=== PATIENT | male | born 1940 | race Caucasian/White ===

== ENCOUNTER 2020-05-24 05:52 | Day surgery (SDC) | payer MEDICARE, BC ==
[~2020-05-24 05:52] MED LIST: Dextrose 5%-0.45% NaCl 1,000 ML IV SCH; Sodium Chloride 0.9% 10 ML Syringe FLUSH PRN
[2020-05-24] MEDS ORDERED: fentaNYL 100 MCG/2 ML SDV IV ONE ×3 (05:53→07:01)
[2020-05-24] MEDS ORDERED: Midazolam 1 MG/ML 2 ML SDV IV ONE ×5 (05:53→07:09)
[2020-05-24] MEDS ORDERED: Midazolam 1 MG/ML 2 ML SDV ONE (06:16)
[2020-05-24] MEDS ORDERED: fentaNYL 100 MCG/2 ML SDV ONE (06:16)
--- NOTE | 2020-05-24 07:57 | OR ---
DATE: 05/24/2020 PROCEDURE: Total colonoscopy. INSTRUMENT USED: PCF-H190DL Olympus video colonoscope. PREMEDICATIONS: Fentanyl 100 mcg intravenous, Versed 3 mg intravenous, nasal O2 cannula. The procedure was done under pulse oximetry, BP recording, and technical sales consultant. INDICATION: The patient with chronic constipation, more pronounced, and not responsive to medical measures. Colonoscopic examination is done for detection of any polypoid lesions and removal, endoscopic hemostasis therapy if needed. DESCRIPTION OF PROCEDURE: Initial rectal exam showed external hemorrhoidal tags and some anal deformity. Rigid anoscopy showed small internal hemorrhoids without bleeding from them. The colonoscope was passed with ease. Numerous scattered diverticula were noted, more so in the distal left colon along with deformity. The scope was passed with ease up to the ileocecal area. Photographs were taken of the normal-appearing cecum, identified by landmarks of appendiceal orifice and double-bulged ileocecal folds. No bleeding was noted from any of the visualized areas at the commencement of the examination. The bowel preparation was found to be adequate, Goldonna scale 3 in all the regions. No stricture. No vascular ectasia. No large isolated ulcerations seen. No evidence of diffuse inflammatory bowel disease in the form of friability, contact bleeding, or ulcerations. No polyp or tumor mass identified. Probing the proximal sides of folds and flexures using adequate distention and clearing up the stool material, withdrawal of the scope was made, cecum to rectum time over 6 minutes. No bleeding was noted from any of the visualized areas at the completion of examination. IMPRESSION: 1. External and internal hemorrhoids. 2. Diverticulosis. The patient tolerated the procedure well. [facility] /[id number]
== END 2020-05-24 09:23 | disposition home or self-care (01) ==
LOC: DL.ENDO 05:52
PROVIDERS: ATTEND Internal Medicine Gastroenterology
DX: K64.8 Other hemorrhoids (principal); K64.4 Residual hemorrhoidal skin tags; K57.30 Diverticulosis of large intestine without perforation or abscess without bleeding; K62.89 Other specified diseases of anus and rectum; K59.09 Other constipation; I10 Essential (primary) hypertension; E66.09 Other obesity due to excess calories; M19.90 Unspecified osteoarthritis, unspecified site; G30.9 Alzheimer's disease, unspecified; F02.80 Dementia in other diseases classified elsewhere, unspecified severity, without behavioral disturbance, psychotic disturbance, mood disturbance, and anxiety; I71.2 Thoracic aortic aneurysm, without rupture; Z85.828 Personal history of other malignant neoplasm of skin; Z98.890 Other specified postprocedural states; Z90.49 Acquired absence of other specified parts of digestive tract; Z88.1 Allergy status to other antibiotic agents; Z88.8 Allergy status to other drugs, medicaments and biological substances; Z90.89 Acquired absence of other organs; Z85.038 Personal history of other malignant neoplasm of large intestine; Z68.28 Body mass index [BMI] 28.0-28.9, adult
CPT/HCPCS: J2250; J3010; J7042